=== PATIENT | female | born 1930 | race Caucasian/White ===

== ENCOUNTER 2020-06-10 15:38 | Inpatient (IN) | payer OTHER ==
[~2020-06-10] VITALS: Ht 172.7 cm; Wt 68.0 kg
[2020-06-10] MEDS ORDERED: FUROSEMIDE 40 MG/4 ML VIAL IV ONE (16:00)
[2020-06-10 16:05] LABS: Hematocrit 32.9 % (36.0-46.0)
[2020-06-10 16:07] LABS: Mean Corpuscular Hemoglobin 29.2 pg (28.0-32.0); Mean Corpuscular Hgb Conc. 33.3 g/dL (32.0-36.0); Mean Corpuscular Volume 87.8 fL (80.0-100.0); Platelet Count (auto) 534 10^3/uL (140-450); Red Blood Cells 3.75 10^6/uL (4.0-5.20); White Blood Cell 8.2 10^3/uL (4.4-10.8)
[2020-06-10 16:08] LABS: Basophils % (manual) 0 (0.0-2.0); Blast Cells 0; Metamyelocytes % 0; Myelocytes % 0; Promyelocytes % 0; Reactive Lymphocytes 0; Red Cell Distribution Width 24.2 % (11.8-14.3)
[2020-06-10 16:33] LABS: Alanine Aminotransferase 25 U/L (13-56); Albumin 3.7 g/dL (3.4-5.0); Anion Gap 3 (5-15); Aspartate Aminotransferase 28 U/L (15-37); Blood Urea Nitrogen 17 mg/dL (7-18); Calcium 8.6 mg/dL (8.5-10.1); Carbon Dioxide 35 mmol/L (21-32); Chloride 102 mmol/L (98-107); Glucose 103 mg/dL (74-106); Potassium 4.1 mmol/L (3.5-5.1); Sodium 140 mmol/L (136-145)
[2020-06-10 16:38] LABS: Alkaline Phosphatase 78 U/L (45-117); BUN/Creatinine Ratio 20.7; Bilirubin, Total 0.8 mg/dL (0.2-1.0); GFR African American 85 mL/min; GFR Non-African American 70 mL/min; Total Protein 7.5 g/dL (6.4-8.2)
[2020-06-10 16:47] LABS: Band Neutrophils % (manual) 4; Eosinophils % (manual) 7 (0-7); Lymphocytes % (manual) 32 (10.0-50.0); Monocytes % (manual) 4 (0-12)
[2020-06-10] MEDS ORDERED: NITROGLYCERIN 0.4 MG SL TAB SL PRN (21:15)
[2020-06-10] MEDS ORDERED: ACETAMINOPHEN 325 MG TAB PO PRN (21:15)
[2020-06-10] MEDS ORDERED: MORPHINE SULF INJ 2 MG/ML SYRINGE 1ML IV PRN (21:15)
[2020-06-10] MEDS ORDERED: ONDANSETRON HCL 4 MG/2 ML VIAL IV PRN (21:15)
[2020-06-10] MEDS ORDERED: TEMAZEPAM 15 MG CAP PO PRN (21:15)
[2020-06-10] MEDS ORDERED: cloNIDine HCL 0.1 MG TAB PO PRN (21:15)
[2020-06-10] MEDS: ENOXAPARIN SOD 40 MG/0.4 ML SYRINGE SC SCH (22:08)
[2020-06-10] MEDS: ATORVASTATIN 20 MG TAB PO SCH (22:08)
[2020-06-11] VITALS (7 sets, daily range): BP systolic 120–154; BP diastolic 47–71
[2020-06-11] MEDS: FUROSEMIDE 20 MG/2 ML VIAL IV SCH ×2 (05:54→17:52)
[2020-06-11 09:32] LABS: Basophils # (auto) 0.1 10 ^3/uL (0-0.2); Basophils % (auto) 3.3 % (0.0-2.0); Eosinophils # (auto) 0.1 10 ^3/uL (0-0.8); Eosinophils % (auto) 2.6 % (0.0-7.0); Hematocrit 26.8 % (36.0-46.0); Hemoglobin 9.3 g/dL (12.2-16.2); Lymphocytes # (auto) 0.8 10 ^3/uL (0.4-5.4); Lymphocytes % (auto) 16.8 % (10.0-50.0); Mean Corpuscular Hemoglobin 30.4 pg (28.0-32.0); Mean Corpuscular Hgb Conc. 34.6 g/dL (32.0-36.0); Monocytes # (auto) 0.2 10 ^3/uL (0-1.3); Monocytes % (auto) 4.3 % (0.0-12.0); Neutrophils # (auto) 3.3 10 ^3/uL (1.6-8.6); Nucleated Red Blood Cells % 0.3 %; Platelet Count (auto) 417 10^3/uL (140-450); Red Blood Cells 3.05 10^6/uL (4.0-5.20); White Blood Cell 4.5 10^3/uL (4.4-10.8)
[2020-06-11 09:37] LABS: Red Cell Distribution Width 24.2 % (11.8-14.3)
[2020-06-11 09:52] LABS: Calcium 7.8 mg/dL (8.5-10.1); Potassium 3.4 mmol/L (3.5-5.1)
[2020-06-11] MEDS ORDERED: LISINOPRIL 10 MG TAB PO SCH (10:00)
[2020-06-11] MEDS: ASPirin 81 mg TAB PO SCH ×2 (10:00→10:05)
[2020-06-11] MEDS: FAMOTIDINE 20 MG TAB PO SCH (10:05)
[2020-06-11] MEDS ORDERED: CARVEDILOL 3.125 MG TAB PO ONE (10:45)
[2020-06-11 16:21] LABS: Urine Bacteria NONE SEEN /hpf (None Seen); Urine Blood Negative /uL (Negative); Urine WBC <1 /hpf (0 - 5)
[2020-06-11] MEDS ORDERED: OMEP-434 PO (17:00)
[2020-06-11] MEDS ORDERED: MULT-1058 PO (17:00)
[2020-06-11] MEDS ORDERED: FURO20TA3 PO (17:00)
[2020-06-11] MEDS ORDERED: POM (17:00)
[2020-06-11] MEDS ORDERED: SENN1TAB14 PO (17:00)
[2020-06-11] MEDS ORDERED: AMLO-489 PO (17:00)
[2020-06-11] MEDS ORDERED: ATOR40TA52 PO (17:00)
[2020-06-11] MEDS ORDERED: CHOL20007 PO (17:00)
[2020-06-11] MEDS ORDERED: ALEN70TA74 PO (17:00)
[2020-06-11] MEDS ORDERED: METO-159 PO (17:00)
[2020-06-11] MEDS: ENOXAPARIN SOD 40 MG/0.4 ML SYRINGE SC SCH (17:52)
[2020-06-11] MEDS: LISINOPRIL 10 MG TAB PO SCH (18:03)
[2020-06-11] MEDS: ATORVASTATIN 20 MG TAB PO SCH (20:55)
[2020-06-11] MEDS: CARVEDILOL 3.125 MG TAB PO SCH (20:56)
[2020-06-12 05:00] VITALS: BP 158/77
[2020-06-12] MEDS: FUROSEMIDE 20 MG/2 ML VIAL IV SCH (06:51)
[2020-06-12 07:11] LABS: Potassium 3.5 mmol/L (3.5-5.1)
[2020-06-12 08:00] VITALS: BP 153/77
[2020-06-12] MEDS: FAMOTIDINE 20 MG TAB PO SCH (10:53)
[2020-06-12] MEDS: LISINOPRIL 10 MG TAB PO SCH (10:54)
[2020-06-12] MEDS: CARVEDILOL 3.125 MG TAB PO SCH (10:55)
[2020-06-12 12:22] VITALS: BP 159/66
[2020-06-12] MEDS ORDERED: ENOXAPARIN SOD 40 MG/0.4 ML SYRINGE SC SCH (18:00)
== END 2020-06-12 16:10 | disposition home or self-care (01) | DRG 292 ==
LOC: ER 15:38 → TELE 15:39 → TELE-CENTR 06-11 03:49
PROVIDERS: ADMIT Nurse Practitioner; ATTEND Internal Medicine
DX: I11.0 Hypertensive heart disease with heart failure (principal); E87.3 Alkalosis; J96.10 Chronic respiratory failure, unspecified whether with hypoxia or hypercapnia; I50.43 Acute on chronic combined systolic (congestive) and diastolic (congestive) heart failure; E78.5 Hyperlipidemia, unspecified; E87.6 Hypokalemia; D64.9 Anemia, unspecified; Z20.822 Contact with and (suspected) exposure to COVID-19
CPT/HCPCS: 36415; 71045; 80048; 80053; 81001; 82728; 83880; 84484; 85007; 85025; 85027; 85379; 86141; 87426; 93005; 93306; 93970; 96374; 97163; G0378